=== PATIENT | female | born 1985 | race Caucasian/White ===

== ENCOUNTER 2018-07-01 16:16 | Inpatient (IN) | payer OTHER ==
[2018-07-01 16:46] VITALS: BMI 45.3
[2018-07-01] MEDS ORDERED: BUTORPHANOL 1 MG/ML 1 ML VIAL IV PRN (16:47)
[2018-07-01] MEDS ORDERED: DINOPROSTONE 10 MG INSERT.ER VAGINAL ONE (16:47)
[2018-07-01] MEDS: LABETALOL 200 MG TAB PO SCH (16:57)
[2018-07-01 17:07] LABS: Anisocytosis Slight; Basophils % (A) 0 %; Eosinophils # (A) 0.1 k/uL (0-0.7); Eosinophils % (A) 1 %; HCT 30.6 % (34.0-46.0); HGB 9.8 gm/dL (11.4-16.0); Hypochromasia Slight; Lymphocytes # (A) 1.1 k/uL (1.0-4.8); Lymphocytes % (A) 15 %; MCH 27.1 pg (25.0-35.0); MCHC 32.2 g/dL (31.0-37.0); MCV 84.3 fL (80.0-100.0); Mean Platelet Volume 9.2; Monocytes # (A) 0.3 k/uL (0-1.0); Monocytes % (A) 4 %; Neutrophils # (A) 5.6 k/uL (1.3-7.7); Neutrophils % (A) 78 %; Platelet Count 240 k/uL (150-450); RBC 3.63 m/uL (3.80-5.40); RDW 17.2 % (11.5-15.5); WBC 7.3 k/uL (3.8-10.6)
[2018-07-01 17:18] LABS: INR 0.9 (<1.2); Partial Thromboplastin Time 23.1 sec (22.0-30.0); Prothrombin Time 9.3 sec (9.0-12.0)
[2018-07-01 17:55] LABS: ALT 22 U/L (9-52); AST 24 U/L (14-36); LDH 599 U/L (313-618); Uric Acid 5.8 mg/dL (3.7-7.4)
[2018-07-01 19:42] LABS: Appearance,Urine Cloudy (Clear); Bacteria,Urine Rare /hpf; Bilirubin,Urine Negative (Negative); Blood,Urine Negative (Negative); Color,Urine Yellow; Glucose,Urine (UA) Negative (Negative); Ketones,Urine Trace (Negative); Leukocyte Esterase,Urine Negative (Negative); Mucus,Urine Moderate /hpf; Nitrite,Urine Negative (Negative); PH, Urine 6.5 (5.0-8.0); Protein,Urine 2+ (Negative); RBC,Urine 4 /hpf (0-5); Specific Gravity,Urine 1.033 (1.001-1.035); Squamous Epithelial Cell,Urine 1 /hpf (0-4); WBC,Urine 1 /hpf (0-5)
[2018-07-02] MEDS: LABETALOL 200 MG TAB PO SCH ×3 (01:55→22:25)
[2018-07-02] MEDS: ACETAMINOPHEN TAB 325 MG TAB PO PRN (04:24)
[2018-07-02] MEDS ORDERED: LIDOCAINE 0.5% (PF) 5 MG/ML (50 ML SDV) SQ PRN (05:54)
[2018-07-02] MEDS ORDERED: OXYTOCIN 10 UNIT/ML 1 ML VIAL IM PRN (05:54)
[2018-07-02] MEDS ORDERED: METHYLERGONOVINE 0.2 MG/ML 1 ML AMP IM PRN (05:54)
[2018-07-02] MEDS ORDERED: TERBUTALINE 1 MG/ML VIAL SQ PRN (05:54)
[2018-07-02] MEDS ORDERED: CARBOPROST TROMETHAMINE 250 MCG/ML 1 ML AMP IM PRN (05:54)
[2018-07-02] MEDS ORDERED: OXYTOCIN 20 UNITS/1000 ML NS 1,000 ML IV SCH (06:00)
[2018-07-02] MEDS: LACTATED RINGERS 1,000 ML IV SCH ×3 (06:20→17:44)
--- NOTE | 2018-07-02 17:20 | P.HPOB ---
History of Present Illness H&P Date: 07/02/18 Chief Complaint: Induction of LAbor 32 year old presents at 37 weeks 5 days for induction of labor due to chronic hypertension with superimposed pre-eclampsia. Her cervix is closed, thick and high. She is not chanda. heart tones 130-135 with moderate variability and reactive. Her blood pressures up and controlled with Aldomet at home, this medication is not available in the hospital so she will be controlled with labetalol here. She has had some mild headaches that have gone away with Tylenol. Her PC ratio has gone up to 0.0410. Review of Systems All systems: negative Constitutional: Denies chills, Denies fever Eyes: denies blurred vision, denies pain Ears, nose, mouth and throat: Denies headache, Denies sore throat Cardiovascular: Denies chest pain, Denies shortness of breath Respiratory: Denies cough Gastrointestinal: Denies abdominal pain, Denies diarrhea, Denies nausea, Denies vomiting Genitourinary: Denies dysuria, Denies hematuria Musculoskeletal: Denies myalgias Integumentary: Denies pruritus, Denies rash Neurological: Denies numbness, Denies weakness Psychiatric: Denies anxiety, Denies depression Endocrine: Denies fatigue, Denies weight change Past Medical History Past Medical History: Hypertension Additional Past Medical History / Comment(s): Obstetric history: She has had one elective termination, one spontaneous , this is her third . She's had care with me since 9 weeks gestation. Her blood type is A-, and was negative, rubella immune, RPR nonreactive, placed B-, toxoplasmosis negative. Her quad screen was increased for Down's at 1 in 270, negative maternity 21. She has been followed with NSTs and biophysical profiles. History of Any Multi-Drug Resistant Organisms: None Reported Past Surgical History: Adenoidectomy Additional Past Surgical History / Comment(s): wisdom teeth 2017 Past Anesthesia/Blood Transfusion Reactions: No Reported Reaction Smoking Status: Former smoker - Past Family History Mother Family Medical History: Hypertension Father Family Medical History: Hyperlipidemia, Hypertension Medications and Allergies Home Medications Medication Instructions Recorded Confirmed Type Aspirin [Adult Low Dose Aspirin EC] 81 mg PO DAILY 06/18/18 07/01/18 History Cetirizine HCl [Zyrtec] 10 mg PO DAILY 06/18/18 07/01/18 History Methyldopa [Aldomet] 750 mg PO BID 06/18/18 07/01/18 History Omeprazole Magnesium [PriLOSEC OTC] 1 cap PO DAILY 06/18/18 07/01/18 History Allergies Allergy/AdvReac Type Severity Reaction Status Date / Time No Known Allergies Allergy Verified 07/01/18 16:36 Exam Osteopathic Statement: *. No significant issues noted on an osteopathic structural exam other than those noted in the History and Physical/Consult. Vital Signs Temp Pulse Resp BP Pulse Ox 07/02/18 00:06 97.8 F 96 14 133/63 98 07/01/18 21:38 98.2 F 93 14 119/56 97 Intake and Output 07/02/18 07/02/18 07/02/18 06:59 14:59 22:59 Other: # Voids 1 Heart: Regular rate and rhythm Lungs: Clear to auscultation bilaterally Abdomen: Soft, nontender Extremities: Negative Homans sign Results Result Diagrams: 07/01/18 17:02 07/01/18 17:02 Abnormal Lab Results - Last 24 Hours (Table) 07/01/18 07/01/18 07/01/18 Range/Units 17:02 19:25 19:25 RBC 3.63 L (3.80-5.40) m/uL Hgb 9.8 L (11.4-16.0) gm/dL Hct 30.6 L (34.0-46.0) % RDW 17.2 H (11.5-15.5) % Urine Appearance Cloudy H (Clear) Urine Protein 2+ H (Negative) Urine Ketones Trace H (Negative) Urine Bacteria Rare H (None) /hpf Urine Mucus Moderate H (None) /hpf U Random Total Protein 28 H (<12) mg/dL Assessment and Plan (1) Chronic hypertension with superimposed pre-eclampsia Current Visit: Yes Status: Acute Code(s): O11.9 - PRE-EXISTING HYPERTENSION WITH PRE-ECLAMPSIA, UNSP TRIMESTER SNOMED Code(s): 98081218 Plan: 1. Induction of labor with Cervidil and then amniotomy and Pitocin in the morning 2. Monitor blood pressure 3. Preeclamptic labs 4. Anticipate normal vaginal delivery
[2018-07-02] MEDS ORDERED: ROPIVACAINE 5MG/ML 20ML VIAL ONE (17:28)
[2018-07-02] MEDS ORDERED: fentaNYL (PF) 50 MCG/ML 5 ML AMP ONE (17:28)
[2018-07-02] MEDS ORDERED: SODIUM CHLORIDE 0.9% 100 ML BAG ONE (17:28)
[2018-07-02] MEDS ORDERED: CITRIC ACID-SODIUM CITRATE 15 ML CUP PO ONE (23:40)
[2018-07-02] MEDS ORDERED: ceFAZolin IN SWFI 2 GM/20 ML SYRINGE IVP ONE (23:40)
[2018-07-03] MEDS ORDERED: OXYTOCIN 10 UNIT/ML 1 ML VIAL ONE (00:11)
[2018-07-03] MEDS ORDERED: MORPHINE SULFATE (PF) 0.3 MG/0.3 ML SYR ONE (00:11)
[2018-07-03] MEDS ORDERED: MIDAZOLAM 2 MG/2 ML VIAL ONE (00:11)
[2018-07-03] MEDS ORDERED: CHLOROPROCAINE 3% 30 MG/ML 20 ML VIAL ONE (00:11)
[2018-07-03] MEDS ORDERED: ONDANSETRON 4 MG/2 ML VIAL ONE (00:11)
[2018-07-03] MEDS ORDERED: KETOROLAC 30 MG/ML 1 ML VIAL ONE (00:11)
[2018-07-03] MEDS ORDERED: PROPOFOL 10 MG/ML 20 ML VIAL IV ONE (00:11)
[2018-07-03] MEDS ORDERED: diphenhydrAMINE 50 MG CAP PO PRN (01:07)
[2018-07-03] MEDS ORDERED: NALOXONE 0.4 MG/ML 1 ML VIAL IV PRN (01:07)
[2018-07-03] MEDS ORDERED: ONDANSETRON 4 MG/2 ML VIAL IVP PRN (01:07)
[2018-07-03] MEDS ORDERED: METOCLOPRAMIDE 5 MG/ML 2 ML VIAL IVP PRN (01:07)
[2018-07-03] MEDS ORDERED: diphenhydrAMINE 50 MG/ML 1 ML VIAL IVP PRN ×2 (01:07)
[2018-07-03] MEDS ORDERED: ZOLPIDEM 5 MG TAB PO PRN (01:07)
[2018-07-03] MEDS ORDERED: ACETAMINOPHEN TAB 325 MG TAB PO PRN (01:07)
[2018-07-03] MEDS ORDERED: diphenhydrAMINE 25 MG CAP PO PRN (01:07)
[2018-07-03] MEDS ORDERED: MAGNESIUM SULFATE-WATER PMX 4 GM in WATER FOR INJECTION 1 50ML.BAG IVPB STA (01:09)
[2018-07-03] MEDS ORDERED: OXYTOCIN 20 UNITS/1000 ML NS 1,000 ML IV SCH (01:15)
--- NOTE | 2018-07-03 01:19 | P.OP ---
Date of Procedure: 07/03/18 Preoperative Diagnosis: 1. at 37 weeks 6 days 2. Chronic hypertension with superimposed preeclampsia 3. Arrest of descent 4. Family planning Postoperative Diagnosis: 1. at 37 weeks 6 days 2. Chronic hypertension with superimposed preeclampsia 3. Arrest of descent 4. Family planning Procedure(s) Performed: Primary low transverse with tubal ligation Anesthesia: epidural Surgeon: Eliza Aviles Set Painter #1: Anitha Martins Estimated Blood Loss (ml): 400 IV fluids (ml): 700 Urine output (ml): 50 Pathology: other (Placenta, segments of bilateral fallopian tubes) Condition: stable Disposition: floor Indications for Procedure: Please see dictated H&P for full details of 4 the patient was admitted for induction of labor. After Cervidil was placed patient did make a little bit of cervical change. Pitocin was started and she did make cervical change up to 6 cm but the head did not come down was still -2 station. Patient was in excruciating pain radiating down her right leg despite an epidural. Informed consent was obtained and section was called. Operative Findings: Viable male, Apgars 8, 9, weight 6 lbs. 6 oz. Normal uterus, tubes, ovaries. Description of Procedure: Patient was taken to the operating room where spinal epidural was found be adequate. She was prepped and draped in normal sterile fashion in dorsal supine position with a leftward tilt. Pfannenstiel skin incision was made the scalpel and carried through to the underlying layer of fascia with the scalpel. Fascia was incised in midline and carried bilaterally with the Vergara scissors. The superior aspect of the fascial incision was grasped with Makenzie clamps elevated and the underlying rectus muscles dissected off with the Vergara's. Attention was then turned to inferior aspect of same incision which in a similar fashion was grasped tented up and the underlying rectus muscles dissected off with the Vergara's. The rectus muscles were the midline and the peritoneum was identified tented up and entered sharply with the scalpel. The incision was extended superiorly and inferiorly with good visualization of the bladder. The bladder blade was inserted. The bladder was seen to be out of the way. A low transverse incision was then made on the uterus with the scalpel. This was carried bilaterally and digital manner. Infant's head delivered atraumatically, nose and mouth bulb suctioned, cord clamped and cut, infant handed off to waiting nurses. Apgars 8,9, weight 6 lbs. 6 oz. Placenta delivered manually, intact with three-vessel cord. The uterus is exteriorized and cleared of all clots and debris. The uterine incision was closed with 0 Vicryl in a running locked fashion. Second layer of the same sutures used in imbricating fashion to obtain excellent hemostasis. Both ovaries and tubes appeared normal. The right fallopian tube was grasped with a hemostat and a window was made in the mesosalpinx with the Bovie. The right fallopian tube was doubly ligated and a portion was removed. The pedicles were cauterized with the Bovie. The left fallopian tube was grasped with hemostat and a window was made in the mesosalpinx with the Bovie. The left fallopian tube was doubly ligated and a portion was removed. The pedicles were cauterized with the Bovie. The uterus was placed back into the abdomen. At this time the patient was very uncomfortable. The fascia was reapproximated using 0 Vicryl in a running fashion. The subcutaneous tissues closed with 3-0 Vicryl running fashion. The skin was closed wenceslao. Patient tolerated the procedure well, sponge and instrument counts were correct times 2 and she was taken to the recovery room in stable condition.
[2018-07-03] MEDS: MAGNESIUM SULFATE-WATER PMX 20 GM in WATER FOR INJECTION 1 500ML.BAG IV SCH ×3 (02:07→21:07)
[2018-07-03 07:01] LABS: Anisocytosis Slight; Basophils % (A) 0 %; Eosinophils % (A) 0 %; HCT 31.7 % (34.0-46.0); HGB 9.5 gm/dL (11.4-16.0); Hypochromasia Moderate; Lymphocytes # (A) 1.2 k/uL (1.0-4.8); Lymphocytes % (A) 7 %; MCH 26.3 pg (25.0-35.0); MCHC 29.8 g/dL (31.0-37.0); MCV 88.2 fL (80.0-100.0); Mean Platelet Volume 8.9; Monocytes # (A) 0.7 k/uL (0-1.0); Monocytes % (A) 4 %; Neutrophils # (A) 14.8 k/uL (1.3-7.7); Neutrophils % (A) 87 %; Platelet Count 313 k/uL (150-450); RDW 17.6 % (11.5-15.5)
[2018-07-03] MEDS: SENNOSIDES-DOCUSATE SODIUM 1 EACH TAB PO SCH ×2 (09:21→21:05)
[2018-07-03] MEDS: ATENOLOL 50 MG TAB PO SCH (09:21)
[2018-07-03] MEDS: KETOROLAC 30 MG/ML 1 ML VIAL IVP PRN ×2 (14:13→19:38)
[2018-07-03] MEDS: LACTATED RINGERS 1,000 ML IV SCH ×5 (14:15→22:39)
[2018-07-03] MEDS ORDERED: Rhogam IMMUNE GLOBULIN 1,500 UNIT/1 ML IM ONE (14:40)
[2018-07-03] MEDS: SIMETHICONE 80 MG CHEWABLE PO PRN ×2 (16:39→19:38)
[2018-07-03] MEDS ORDERED: PANTOPRAZOLE 40 MG TABLET PO STA (18:06)
[2018-07-04] MEDS: LACTATED RINGERS 1,000 ML IV SCH ×4 (01:42→20:14)
[2018-07-04] MEDS: MAGNESIUM SULFATE-WATER PMX 20 GM in WATER FOR INJECTION 1 500ML.BAG IV SCH ×2 (01:43→20:14)
--- NOTE | 2018-07-04 08:14 | P.PNOBGPC ---
Subjective - Subjective Principal diagnosis: S/P 1*LTCS with TL POD #1 Interval history: Pt seen and examined. She did have some low saturations of 89% when on magnesium sulfate but this reversed with discontinuation of this medication. HEr pain is controlled and we will see how her pressures are today on her atenalol that she was on before . Patient reports: Reports appetite normal, Reports voiding normally, Reports pain well controlled, Reports ambulating normally [place]: doing well Objective - Vital Signs Latest vital signs: Vital Signs Temp Pulse Resp BP BP Pulse Ox 07/04/18 07:59 98.9 F 84 20 149/89 07/04/18 04:00 97.9 F 70 18 153/73 95 07/03/18 23:45 97.9 F 77 16 135/78 96 07/03/18 23:33 77 95 07/03/18 23:08 74 95 07/03/18 22:42 78 94 L 07/03/18 22:34 80 92 L 07/03/18 21:34 79 93 L 07/03/18 21:04 84 91 L 07/03/18 20:34 83 90 L 07/03/18 20:14 87 89 L 07/03/18 19:40 98.8 F 94 16 143/90 90 L 07/03/18 16:00 98.3 F 93 18 141/86 07/03/18 12:30 98.5 F 88 18 126/74 07/03/18 11:41 128/75 07/03/18 10:30 140/78 07/03/18 09:31 134/81 07/03/18 08:45 131/77 Intake and Output 07/03/18 07/04/18 07/04/18 22:59 06:59 14:59 Intake Total 500 Output Total 1650 600 Balance -1150 -600 Intake: Intake, IV Titration 500 Amount Lactated Ringers 1,000 ml 500 @ 125 mls/hr IV .Q8H [facility] Rx#:[id number] Output: Urine 1650 600 Uretheral (Wood) 200 Other: Voiding Method Indwelling Catheter Indwelling Catheter # Voids 600 1 1 - Exam Lungs: bilateral: normal Chest: Normal S1, Normal S2 Extremities: Present: normal Abdomen: Present: normal appearance, soft. Absent: distention, tenderness Incision: Present: normal, dry, intact Uterus: Present: normal, firm Assessment and Plan (1) Chronic hypertension with superimposed pre-eclampsia Current Visit: Yes Status: Acute Code(s): O11.9 - PRE-EXISTING HYPERTENSION WITH PRE-ECLAMPSIA, UNSP TRIMESTER SNOMED Code(s): 61427942 (2) Status post primary low transverse section Current Visit: Yes Status: Acute Code(s): Z98.891 - HISTORY OF UTERINE SCAR FROM PREVIOUS SURGERY SNOMED Code(s): 582958447 Plan: 1. atenolol 50 mg today 2. increase ambulation 3. reg diet
[2018-07-04] MEDS: ATENOLOL 50 MG TAB PO SCH (09:24)
[2018-07-04] MEDS: IBUPROFEN 600 MG TAB PO PRN ×2 (11:56→18:15)
[2018-07-04] MEDS: HYDROcodone/APAP 7.5-325MG 1 EACH TAB PO PRN ×2 (14:49→20:15)
[2018-07-04] MEDS: SENNOSIDES-DOCUSATE SODIUM 1 EACH TAB PO SCH (20:14)
[2018-07-05] MEDS: IBUPROFEN 600 MG TAB PO PRN ×3 (02:56→18:58)
[2018-07-05] MEDS: HYDROcodone/APAP 7.5-325MG 1 EACH TAB PO PRN (08:33)
[2018-07-05] MEDS: ATENOLOL 50 MG TAB PO SCH (08:33)
[2018-07-05 10:15] VITALS: RESP 16
[2018-07-05] MEDS: SENNOSIDES-DOCUSATE SODIUM 1 EACH TAB PO SCH ×2 (10:17→20:50)
[2018-07-05 13:50] LABS: Anisocytosis Slight; HCT 30.5 % (34.0-46.0); HGB 9.8 gm/dL (11.4-16.0); Hypochromasia Moderate; MCH 27.8 pg (25.0-35.0); MCV 86.8 fL (80.0-100.0); Mean Platelet Volume 7.7; Platelet Count 331 k/uL (150-450); RBC 3.52 m/uL (3.80-5.40); RDW 17.6 % (11.5-15.5); WBC 10.3 k/uL (3.8-10.6)
[2018-07-05 13:56] LABS: ALT 21 U/L (9-52); AST 22 U/L (14-36); Blood Urea Nitrogen 13 mg/dL (7-17)
[2018-07-05] MEDS ORDERED: amLODIPine 5 MG TAB PO STA ×2 (15:25→17:26)
--- NOTE | 2018-07-05 17:40 | P.PN ---
Progress Note - Text Progress Note Date: 07/05/18 I was called in regard to patient's elevated blood pressure (189/102). This has continued to increase despite 2 anti-hypertensives. I therefore have consulted Dr. Barr who has increased her meds and will evaluate patient.
[2018-07-06] MEDS: IBUPROFEN 600 MG TAB PO PRN ×2 (00:51→08:42)
[2018-07-06] MEDS: ATENOLOL 50 MG TAB PO SCH (08:42)
--- NOTE | 2018-07-06 08:43 | P.PNOBGPC ---
Subjective - Subjective Principal diagnosis: S/P 1*LTCS with TL POD #2 Interval history: Pt seen and examined. Pain controlled. +flatus. Denies CORONA, vision changes, RUQ pain, N/V, CP, SOB or calf pain. Her BP is elevated today. I discussed this with Dr Farias, her PCP and increased her atenolol to 100mg. Patient reports: Reports appetite normal, Reports voiding normally, Reports pain well controlled, Reports ambulating normally : doing well Objective - Vital Signs Latest vital signs: Vital Signs Temp Pulse Pulse Resp BP BP Pulse Ox 07/06/18 04:20 73 68 16 150/88 154/90 07/06/18 00:00 98.7 F 72 70 16 139/87 155/89 07/05/18 19:45 98.2 F 71 70 16 149/91 157/88 07/05/18 16:45 98.5 F 82 16 189/102 99 07/05/18 14:30 98.4 F 83 16 166/94 98 07/05/18 12:20 73 16 192/103 07/05/18 09:45 74 161/94 152/88 - Exam Lungs: bilateral: normal Chest: Normal S1, Normal S2 Extremities: Present: normal, edema (2+ pedal) Abdomen: Present: normal appearance, soft. Absent: distention, tenderness Incision: Present: normal, dry, intact Uterus: Present: normal, firm - Labs Labs: Abnormal Lab Results - Last 24 Hours (Table) 07/05/18 Range/Units 13:19 RBC 3.52 L (3.80-5.40) m/uL Hgb 9.8 L (11.4-16.0) gm/dL Hct 30.5 L (34.0-46.0) % RDW 17.6 H (11.5-15.5) % Assessment and Plan (1) Chronic hypertension with superimposed pre-eclampsia Current Visit: Yes Status: Acute Code(s): O11.9 - PRE-EXISTING HYPERTENSION WITH PRE-ECLAMPSIA, UNSP TRIMESTER SNOMED Code(s): 46338178 (2) Status post primary low transverse section Current Visit: Yes Status: Acute Code(s): Z98.891 - HISTORY OF UTERINE SCAR FROM PREVIOUS SURGERY SNOMED Code(s): 688583653 Plan: 1. increase atenolol. 2. monitor BP.
--- NOTE | 2018-07-06 08:46 | P.PNOBGPC ---
Subjective - Subjective Principal diagnosis: S/P 1*LTCS with TL POD #3 Interval history: Pt seen and examined. Denies CORONA, vision changed, RUQ pain, N/V, F/C, CP, SOB or calf pain. Her BPs remained elevated yesterday despite the medication increase. Dr Rangel consulted Dr Winters on my behalf who increased her norvasc that I had added to 10mg. This does seem to be helping. Patient reports: Reports appetite normal, Reports voiding normally, Reports pain well controlled, Reports ambulating normally : doing well Objective - Vital Signs Latest vital signs: Vital Signs Temp Pulse Pulse Resp BP BP Pulse Ox 07/06/18 04:20 73 68 16 150/88 154/90 07/06/18 00:00 98.7 F 72 70 16 139/87 155/89 07/05/18 19:45 98.2 F 71 70 16 149/91 157/88 07/05/18 16:45 98.5 F 82 16 189/102 99 07/05/18 14:30 98.4 F 83 16 166/94 98 07/05/18 12:20 73 16 192/103 07/05/18 09:45 74 161/94 152/88 - Exam Lungs: bilateral: normal Chest: Normal S1, Normal S2 Extremities: Present: normal, edema (2+ pedal) Abdomen: Present: normal appearance, soft. Absent: distention, tenderness Incision: Present: normal, dry, intact Uterus: Present: normal, firm - Labs Labs: Abnormal Lab Results - Last 24 Hours (Table) 07/05/18 Range/Units 13:19 RBC 3.52 L (3.80-5.40) m/uL Hgb 9.8 L (11.4-16.0) gm/dL Hct 30.5 L (34.0-46.0) % RDW 17.6 H (11.5-15.5) % Assessment and Plan (1) Chronic hypertension with superimposed pre-eclampsia Current Visit: Yes Status: Acute Code(s): O11.9 - PRE-EXISTING HYPERTENSION WITH PRE-ECLAMPSIA, UNSP TRIMESTER SNOMED Code(s): 59039257 (2) Status post primary low transverse section Current Visit: Yes Status: Acute Code(s): Z98.891 - HISTORY OF UTERINE SCAR FROM PREVIOUS SURGERY SNOMED Code(s): 320004222 Plan: 1. monitor BPs 2. follow with medicine. and await any further recs from Dr Winters.
[2018-07-06] MEDS ORDERED: amLODIPine 5 MG TAB PO SCH (09:00)
[2018-07-06] MEDS: SENNOSIDES-DOCUSATE SODIUM 1 EACH TAB PO SCH (10:23)
[2018-07-06] MEDS ORDERED: amLODIPine 10 MG TAB PO SCH (12:00)
[2018-07-06] MEDS: ACETAMINOPHEN TAB 325 MG TAB PO PRN (12:06)
[2018-07-06 12:11] VITALS: TEMP 98.4
[2018-07-06 13:22] VITALS: BP 158/89; PULSE 71
[2018-07-06] MEDS ORDERED: HYDROCHLOROTHIAZIDE 25 MG TAB PO SCH (14:00)
--- NOTE | 2018-07-06 14:00 | P.CONS ---
History of Present Illness - Reason for Consult Consult date: 07/06/18 Medical management Requesting physician: Romulo Rangel - Chief Complaint Elevated blood pressures - History of Present Illness This is a 32-year-old female, patient of Dr. Bang. She has a known past medical history of hypertension and acid reflux. Patient came into the hospital for induction of labor due to chronic hypertension with superimposed preeclampsia. She had a on 07/03/2018. Patient continues to have elevated blood pressures. Atenolol was increased from 5200 mg daily. Norvasc 5 mg daily was added. Dr. Winters was consulted through the evening due to blood pressures continuing to be elevated. Norvasc 5 mg additional dose was given. And then increase to 10 mg daily. Prior to the admission of the Norvasc blood pressure was elevated at 189/102. Last blood pressure reading was 164/99. Patient denies any headaches or vision changes. Denies any chest pain. Denies any numbness or tingling of the extremities. Denies any nausea or vomiting. Does report having bowel movements. Denies any difficulty urinating. Patient is eager for discharge home today. Hemoglobin 9.8. The baby is being bottle-fed. Review of Systems Please refer to HPI otherwise unremarkable Past Medical History Past Medical History: Hypertension Additional Past Medical History / Comment(s): Obstetric history: She has had one elective termination, one spontaneous , this is her third . She's had care with me since 9 weeks gestation. Her blood type is A-, and was negative, rubella immune, RPR nonreactive, placed B-, toxoplasmosis negative. Her quad screen was increased for Down's at 1 in 270, negative maternity 21. She has been followed with NSTs and biophysical profiles. History of Any Multi-Drug Resistant Organisms: None Reported Past Surgical History: Adenoidectomy Additional Past Surgical History / Comment(s): wisdom teeth 2017 Past Anesthesia/Blood Transfusion Reactions: No Reported Reaction Smoking Status: Former smoker - Past Family History Mother Family Medical History: Hypertension Father Family Medical History: Hyperlipidemia, Hypertension Medications and Allergies Home Medications Medication Instructions Recorded Confirmed Type Cetirizine HCl [Zyrtec] 10 mg PO DAILY 06/18/18 07/01/18 History Omeprazole Magnesium [PriLOSEC OTC] 1 cap PO DAILY 06/18/18 07/01/18 History Atenolol [Tenormin] 100 mg PO DAILY #30 tab 07/05/18 Rx HYDROcodone/APAP 7.5-325MG [[place] 1 each PO Q4-6H PRN #18 tab 07/05/18 Rx 7.5-325] Ibuprofen [Motrin] 600 mg PO Q6HR PRN #30 tab 07/05/18 Rx Hydrochlorothiazide [Hydrodiuril] 25 mg PO DAILY #30 tab 07/06/18 Rx amLODIPine [Norvasc] 10 mg PO DAILY #30 tab 07/06/18 Rx Allergies Allergy/AdvReac Type Severity Reaction Status Date / Time No Known Allergies Allergy Verified 07/01/18 16:36 Physical Exam Vitals: Vital Signs Temp Pulse Pulse Resp BP BP Pulse Ox 07/06/18 12:00 98.4 F 73 16 164/99 99 07/06/18 10:15 72 162/97 07/06/18 08:00 98.2 F 83 16 161/87 98 07/06/18 04:20 73 68 16 150/88 154/90 07/06/18 00:00 98.7 F 72 70 16 139/87 155/89 07/05/18 19:45 98.2 F 71 70 16 149/91 157/88 07/05/18 16:45 98.5 F 82 16 189/102 99 07/05/18 14:30 98.4 F 83 16 166/94 98 07/05/18 12:20 73 16 192/103 Head normocephalic Neck supple Lungs clear to auscultation bilaterally no wheezing or crackles Heart regular rate and rhythm S1-S2, no rub or gallop Abdomen is soft nontender nondistended positive bowel sounds no hepatosplenomegaly Extremities edema bilateral lower extremities Neuro alert and orientated to 3 Results CBC & Chem 7: 07/05/18 13:19 07/05/18 13:19 Labs: Abnormal Lab Results - Last 24 Hours (Table) 07/05/18 Range/Units 13:19 RBC 3.52 L (3.80-5.40) m/uL Hgb 9.8 L (11.4-16.0) gm/dL Hct 30.5 L (34.0-46.0) % RDW 17.6 H (11.5-15.5) % Assessment and Plan Assessment: 1. Chronic hypertension with superimposed preeclampsia status post completed on 07/03/2018 2. Essential hypertension with uncontrolled blood pressures. Atenolol increased to 100 mg daily and Norvasc 10 mg daily added during this admission. Also, add HCTZ 25mg daily. Discussed weight loss and low salt diet. Check BP at home and record. Take results to Dr. Bang 3. GERD 4. Anemia: Hemoglobin currently 9.8. Patient not reporting any blood in her stools. She likely has some acute blood loss anemia secondary to . However, Hgb was 9.8 before . Recommend further workup for anemia to be completed outpatient with PCP Thank you for this consultation. Patient is medically stable for discharge home. Time with Patient: Greater than 30 (Greater than 60% of the total time spent in counseling and coordination of care.I performed an examination of the patient and discussed their management with the physician Insurance And Benefits Clerk. I have reviewed the Physician Insurance And Benefits Clerk's notes and agree with the documented findings and plan of care)
--- NOTE | 2018-07-09 08:09 | P.DS ---
Providers Date of admission: 07/01/18 16:16 Expected date of discharge: 07/06/18 Attending physician: Eliza Aviles Consults: 07/04/18 16:34 Consult Physician Stat Consulting Provider: Rand Bang Consult Reason/Comments: manage pts blood pressures Do you want consulting provider notified?: Already Contacted 07/05/18 17:04 Consult Physician Stat Consulting Provider: Matias Winters Consult Reason/Comments: elevated bp Do you want consulting provider notified?: Yes Primary care physician: Stated None - Discharge Diagnosis(es) (1) Chronic hypertension with superimposed pre-eclampsia Status: Acute (2) Status post primary low transverse section Status: Acute Hospital Course: Pt presented for induction of labor due to chronic hypertension with superimposed pre-eclampsia. She underwent a primary low transverse . Postoperatively she was placed on magnesium sulfate for almost a full 24 hours but was not tolerating it-her saturation levels on pulse ox were 89%. When the mag was turned off, her pulse ox returned to normal. Ana's blood pressures were also difficult to control after delivery. She was placed back on her original atenolol dose prior to , 50mg but her BPs were 170/100 so this dose was doubled on the advise of her pcp. Norvasc was then also added and when this still did not control her pressures, Dr Winters was consulted. He increased the norvasc and added hydrochlorothiazide. Her BPs came down to a level we were both comfortable sending her home on. Her labs remained normal through her stay. She denied any symptoms. She was discharged home POD #3 in stable condition and will follow up with me in 1 week. Patient Condition at Discharge: Stable Plan - Discharge Summary New Discharge Prescriptions: New Atenolol [Tenormin] 100 mg PO DAILY #30 tab HYDROcodone/APAP 7.5-325MG [[place] 7.5-325] 1 each PO Q4-6H PRN #18 tab PRN Reason: Severe Pain Ibuprofen [Motrin] 600 mg PO Q6HR PRN #30 tab PRN Reason: Mild Pain Or Fever >= 100.5 amLODIPine [Norvasc] 10 mg PO DAILY #30 tab Hydrochlorothiazide [Hydrodiuril] 25 mg PO DAILY #30 tab Continue Cetirizine HCl [Zyrtec] 10 mg PO DAILY Omeprazole Magnesium [PriLOSEC OTC] 1 cap PO DAILY Discontinued Methyldopa [Aldomet] 750 mg PO BID Aspirin [Adult Low Dose Aspirin EC] 81 mg PO DAILY Discharge Medication List Cetirizine HCl [Zyrtec] 10 mg PO DAILY 06/18/18 [History] Omeprazole Magnesium [PriLOSEC OTC] 1 cap PO DAILY 06/18/18 [History] Atenolol [Tenormin] 100 mg PO DAILY #30 tab 07/05/18 [Rx] HYDROcodone/APAP 7.5-325MG [[place] 7.5-325] 1 each PO Q4-6H PRN #18 tab 07/05/18 [Rx] Ibuprofen [Motrin] 600 mg PO Q6HR PRN #30 tab 07/05/18 [Rx] Hydrochlorothiazide [Hydrodiuril] 25 mg PO DAILY #30 tab 07/06/18 [Rx] amLODIPine [Norvasc] 10 mg PO DAILY #30 tab 07/06/18 [Rx] Follow up Appointment(s)/Referral(s): Rand Bang MD [STAFF PHYSICIAN] - 3 Days Eliza Aviles DO [Doctor of Osteopathic Medicine] - 1 Week Activity/Diet/Wound Care/Special Instructions: Recommend Checking CBC and BMP in [address] Obregon office Discharge Disposition: HOME SELF-CARE
== END 2018-07-06 15:10 | disposition home or self-care (01) | DRG 784 ==
LOC: 4FBP 16:16 → MERGE 16:16
PROVIDERS: ADMIT Obstetrics & Gynecology; ATTEND Obstetrics & Gynecology
PROC: 3E033VJ Introduction of Other Hormone into Peripheral Vein, Percutaneous Approach (ICD-10-PCS; 2018-07-01)
PROC: 3E0P7VZ Introduction of Hormone into Female Reproductive, Via Natural or Artificial Opening (ICD-10-PCS; 2018-07-01)
PROC: 10907ZC Drainage of Amniotic Fluid, Therapeutic from Products of Conception, Via Natural or Artificial Opening (ICD-10-PCS; 2018-07-02)
PROC: 00HU33Z Insertion of Infusion Device into Spinal Canal, Percutaneous Approach (ICD-10-PCS; 2018-07-02)
PROC: 3E0R3BZ Introduction of Anesthetic Agent into Spinal Canal, Percutaneous Approach (ICD-10-PCS; 2018-07-02)
PROC: 0UB70ZZ Excision of Bilateral Fallopian Tubes, Open Approach (ICD-10-PCS; 2018-07-03)
PROC: 3E0234Z Introduction of Serum, Toxoid and Vaccine into Muscle, Percutaneous Approach (ICD-10-PCS; 2018-07-03)
PROC: 10D00Z1 Extraction of Products of Conception, Low, Open Approach (ICD-10-PCS; principal; 2018-07-03 00:11)
DX: O11.4 Pre-existing hypertension with pre-eclampsia, complicating childbirth (principal); D62 Acute posthemorrhagic anemia; O62.1 Secondary uterine inertia; O99.02 Anemia complicating childbirth; O10.92 Unspecified pre-existing hypertension complicating childbirth; O99.62 Diseases of the digestive system complicating childbirth; K21.9 Gastro-esophageal reflux disease without esophagitis; O26.893 Other specified pregnancy related conditions, third trimester; Z67.11 Type A blood, Rh negative; Z30.2 Encounter for sterilization; Z3A.37 37 weeks gestation of pregnancy; Z37.0 Single live birth; Z79.82 Long term (current) use of aspirin; Z79.899 Other long term (current) drug therapy; Z87.891 Personal history of nicotine dependence; Z82.49 Family history of ischemic heart disease and other diseases of the circulatory system; Z83.49 Family history of other endocrine, nutritional and metabolic diseases
CPT/HCPCS: 81001; 82565; 82570; 83615; 84156; 84450; 84460; 84520; 84550; 85025; 85027; 85461; 85610; 85730; 88302; 88307; 90471

== ENCOUNTER → 2021-05-17 | Outpatient (CLI) | payer OTHER ==
--- NOTE | 2021-05-17 16:10 | US ---
EXAMINATION TYPE: US pelvic complete DATE OF EXAM: 05/17/2021 COMPARISON: CT dated 10/25/2017 CLINICAL HISTORY: N83.0 Follicular cyst of ovary. painful menses. history of dermoid tumor right ovar y TECHNIQUE: Transabdominal (TA). Date of LMP: 05/10/21 EXAM MEASUREMENTS: Uterus: 9.2 x 3.9 x 4.3 cm Endometrial Stripe: 0.9 cm Right Ovary: 3.4 x 2.8 x 4.0 cm Left Ovary: 2.3 x 1.4 x 2.6cm cm 1. Uterus: Anteverted wnl 2. Endometrium: appears wnl 3. Right Ovary: complex hyperechoic area = 3.1 x 2.8 x 2.4cm ?dermoid 4. Left Ovary: follicles noted 5. Bilateral Adnexa: wnl 6. Posterior cul-de-sac: wnl IMPRESSION: Hyperechoic focus associated with the right ovary is noted and is correlating with terato ma seen on prior CT.
== END | disposition home or self-care (01) ==
LOC: RADUSWWP 15:01
PROVIDERS: ATTEND Obstetrics & Gynecology
DX: N83.01 Follicular cyst of right ovary (principal)
CPT/HCPCS: 76856